=== PATIENT | female | born 2000 | race Caucasian/White ===

== ENCOUNTER 2022-09-25 12:40 | Inpatient (IN) | payer MEDICAID ==
--- NOTE | 2022-09-25 14:32 | P.HPOB ---
History of Present Illness H&P Date: 09/25/22 Chief Complaint: Requested induction of labor This patient is a pleasant 22 yr EDC 09/25/2022 estimated gestational age 40 0/7 weeks who presents for requested induction of labor. was complicated by an EIF however referral to [facility] showed it did not persist. Pre gnancy has otherwise been uncomplicated. Review of Systems Genitourinary: Reports Menstruation: Reports amenorrhea Past Medical History Past Medical History: No Reported History History of Any Multi-Drug Resistant Organisms: None Reported Past Surgical History: No Surgical Hx Reported Past Anesthesia/Blood Transfusion Reactions: No Reported Reaction Past Psychological History: No Psychological Hx Reported Smoking Status: Never smoker Past Alcohol Use History: None Reported Past Drug Use History: None Reported Medications and Allergies Home Medications Medication Instructions Recorded Confirmed Type Control 1 each PO DAILY 04/23/15 04/23/15 History Allergies Allergy/AdvReac Type Severity Reaction Status Date / Time cefazolin [From Kefzol] Allergy Unknown Verified 08/30/22 12:59 cefprozil [From Cefzil] Allergy Rash/Hives Verified 08/30/22 12:59 Penicillins Allergy Unknown Verified 08/30/22 12:59 Exam - OBG Physical Exam Abdomen: bowel sounds normal, no diffuse tenderness, no bruit present, no guarding noted, no hepatomegaly, no splenomegaly, no mass Vulva: both: normal Vagina: normal moisture, no discharge Cervix: no lesion (Cervix closed and thick in office), no discharge Uterus: enlarged Results labs: O positive, Rubella Immune, [id number] neg, Glucola 141 with normal 3hr GTTk, GBS negative, Normal anatomy and growth ultrasounds. Assessment and Plan Assessment: This is a pleasant 22 yr female estimated gestational age 40 wks with unfavorable cervix, requesting induction of labor. Plan is Cervidil placement and anticipate vaginal delivery. (1) 40 weeks gestation of Status: Acute Code(s): Z3A.40 - 40 WEEKS GESTATION OF SNOMED C ode(s): 19061883 (2) Elective induction of labor planned Status: Acute Code(s): FZM3306 - SNOMED Code(s): 667807655
[2022-09-25] MEDS ORDERED: BUTORPHANOL 1 MG/ML 1 ML VIAL IV PRN (17:09)
[2022-09-25] MEDS ORDERED: DINOPROSTONE 10 MG INSERT.ER VAGINAL ONE (17:15)
[2022-09-26] MEDS ORDERED: TERBUTALINE 1 MG/ML VIAL SQ PRN (04:40)
[2022-09-26] MEDS ORDERED: LIDOCAINE 0.5% (PF) 5 MG/ML (50 ML SDV) SQ PRN (04:40)
[2022-09-26] MEDS ORDERED: OXYTOCIN 30 UNITS/500 ML NS 30 UNIT in SALINE 1 500ML.BAG IV SCH ×2 (04:45→18:45)
[2022-09-26] MEDS: LACTATED RINGERS 1,000 ML IV SCH ×3 (05:27→13:48)
[2022-09-26 05:34] LABS: Basophils % (A) 0 %; Eosinophils # (A) 0.2 k/uL (0-0.7); Eosinophils % (A) 1 %; HCT 33.9 % (34.0-46.0); HGB 11.6 gm/dL (11.4-16.0); Lymphocytes # (A) 1.7 k/uL (1.0-4.8); Lymphocytes % (A) 16 %; MCH 26.5 pg (25.0-35.0); MCV 77.8 fL (80.0-100.0); Mean Platelet Volume 9.3; Monocytes # (A) 0.5 k/uL (0-1.0); Monocytes % (A) 5 %; Neutrophils % (A) 75 %; Platelet Count 223 k/uL (150-450); RBC 4.36 m/uL (3.80-5.40); WBC 10.7 k/uL (3.8-10.6)
[2022-09-26] MEDS ORDERED: fentaNYL (PF) 50 MCG/ML 5 ML AMP ONE (11:02)
[2022-09-26] MEDS ORDERED: BUPIVACAINE (PF) 0.25% 30 ML VIAL ONE (11:02)
[2022-09-26] MEDS ORDERED: SODIUM CHLORIDE 0.9% 100 ML BAG ONE (11:02)
[2022-09-26] MEDS ORDERED: CITRIC ACID-SODIUM CITRATE 15 ML CUP PO ONE (17:27)
[2022-09-26] MEDS ORDERED: CLINDAMYCIN 900 MG in DEXTROSE 5% IN WATER 50 ML IVPB STA ×2 (17:30)
[2022-09-26] MEDS ORDERED: ONDANSETRON 4 MG/2 ML VIAL ONE (17:47)
[2022-09-26] MEDS ORDERED: MORPHINE SULFATE (PF) 0.3 MG/0.3 ML SYR ONE (17:47)
[2022-09-26] MEDS ORDERED: MIDAZOLAM 2 MG/2 ML VIAL ONE (17:47)
[2022-09-26] MEDS ORDERED: KETOROLAC 15 MG/ML 1 ML VIAL ONE (17:47)
[2022-09-26] MEDS ORDERED: METHYLERGONOVINE 0.2 MG/ML 1 ML AMP ONE (17:47)
[2022-09-26] MEDS ORDERED: LANOLIN CREAM 5 GM TUBE TOPICAL PRN (18:39)
[2022-09-26] MEDS ORDERED: diphenhydrAMINE 25 MG CAP PO PRN (18:39)
[2022-09-26] MEDS ORDERED: ONDANSETRON 4 MG/2 ML VIAL IVP PRN (18:39)
[2022-09-26] MEDS ORDERED: NALOXONE 0.4 MG/ML 1 ML VIAL IV PRN (18:39)
[2022-09-26] MEDS ORDERED: SIMETHICONE 80 MG CHEWABLE PO PRN (18:39)
[2022-09-26] MEDS ORDERED: METOCLOPRAMIDE 5 MG/ML 2 ML VIAL IVP PRN (18:39)
[2022-09-26] MEDS ORDERED: diphenhydrAMINE 50 MG/ML 1 ML VIAL IVP PRN (18:39)
[2022-09-26] MEDS ORDERED: ZOLPIDEM 5 MG TAB PO PRN (18:39)
[2022-09-26] MEDS ORDERED: LACTATED RINGERS 1,000 ML IV SCH (18:45)
[2022-09-26] MEDS: ACETAMINOPHEN TAB 500 MG TAB PO SCH (19:33)
--- NOTE | 2022-09-26 20:18 | P.OP ---
Date of Procedure: 09/26/22 Preoperative Diagnosis: #1: 40 and one sevenths week intrauterine . #2: Nonreassuring heart tones remote from delivery Postoperative Diagnosis: Same Procedure(s) Performed: Primary low transverse section Anesthesia: epidural Surgeon: Gonzalo Evans Boarding Mother #1: Kelly Lawrence Estimated Blood Loss (ml): 1,000 Pathology: none sent Condition: stable Disposition: floor Indications for Procedure: Please see dictated H&P for intimate details of this patient's admission. Brief summary this is a 22-year-old 1 para 0 female 40 and one sevenths weeks gestation admitted last evening for Cervidil due to postdates with unfavorable cervix. Patient has Cervidil placed moist 2 cm dilated has artificial rupture membranes for clear fluid. Labor progresses slowly she gets to about 4 cm dilated and does have a spontaneous deceleration to the 70s and 80s for approximately 7 minutes or so. With position changes and discontinuing the Pitocin in the usual resuscitative measures heart tones returned to normal. After we have a reactive category 1 NST, the Pitocin was restarted. Patient progresses to about 6 cm dilated and then has repetitive late decelerations. Again Pitocin was discontinued in the usual resuscitative krishna ures are done. This time it is evident that the patient is remote from delivery and that the baby is not tolerating labor. This point have a discussion with the patient and her partner and the rest of the family decision is to proceed with section for delivery. Patient does understand the surgery and risks and risks of infection, bleeding, possible injury bowel, bladder, vessels, and/or other organs. All the patient's questions are answered and written consent is obtained. Operative Findings: This is a vigorous viable male infant Apgars 9 and 9 delivery time is 1805 hrs. Infant grossly appeared normal. Description of Procedure: This patient has a Villasenor catheter placed to straight drain. She subsequently taken to the operating room and she has her epidural dosed up for sufficient level of surgery. After the appropriate timeout, she has abdominal prep and drape. Scalpels and taken Pfannenstiel skin incision is then made. A second scalpel is taken down the fascia the fascia scored with a knife. Fascial incision extended bilaterally using the Berumen scissors. Fascia is dissected off the rectus muscles sharply. Rectus muscles are the peritoneum identified and entered sharply. Peritoneal incision extended superior and inferior without difficulty. Bladder blade is then placed. Bladder peritoneum was taken sharply off the lower uterine segment. Scalpels and taken a low transverse uterine incision is then made. Using a hemostat I enter the uterine cavity bluntly. There is loss of clear fluid. Uterine incision extended bluntly. 's head is then found to be occiput transverse presentation and is gently guided through the incision with fundal pressure. Mouth and nares are bulb suctioned. There is no evidence of a nuchal cord. With more fundal pressure we have delivery the rest this infant's body. This is a vigorous viable male Apgars are 9 and 9 delivery time is 1805 hrs. After delivery of the the umbilical cord is doubly clamped and cut. It appears to be trivascular. The placenta is then manually extracted intact. Uterus is externalized. Uterine incision is demarcated with Vanegas clamps and then closed using 0 Vicryl running locked fashion 2 layers. Excellent hemostasis is noted. Bladder peritoneum was then reapproximated using a 3-0 Vicryl. Uterus, tubes, ovaries appear normal for term gestation. With this done excess fluid is removed from the abdomen and pelvis. Uterus is placed back into the abdomen. The parietal peritoneum was then identified and closed using 0 Vicryl running fashion. Rectus muscles reapproximated in 0 Vicryl interrupted fashion. Fascial incision is then closed using 0 PDS. Fascial incision is intact and hemostatic. Subcutaneous tissues and closed using a 3-0 Vicryl. Skin is and closed using gumaro. All counts are correct 3. There are no complications. Infant and mother are taken to the birthing suite in satisfactory condition.
[2022-09-26] MEDS: METHYLERGONOVINE 0.2 MG TAB PO SCH (22:20)
[2022-09-26] MEDS: SENNOSIDES-DOCUSATE SODIUM 1 EACH TAB PO SCH (22:20)
[2022-09-26] MEDS: KETOROLAC 15 MG/ML 1 ML VIAL IVP SCH (23:35)
[2022-09-26] MEDS: CLINDAMYCIN 900 MG in DEXTROSE 5% IN WATER 50 ML IVPB SCH ×2 (23:36)
[2022-09-27] MEDS: IBUPROFEN 600 MG TAB PO SCH ×4 (01:19→20:51)
[2022-09-27] MEDS: KETOROLAC 15 MG/ML 1 ML VIAL IVP SCH (05:04)
[2022-09-27] MEDS: CLINDAMYCIN 900 MG in DEXTROSE 5% IN WATER 50 ML IVPB SCH ×2 (05:10)
--- NOTE | 2022-09-27 06:35 | P.PNOBGPC ---
Subjective - Subjective Patient reports: Reports appetite normal, Reports voiding normally, Reports pain well controlled, Reports ambulating normally : doing well Objective - Vital Signs Latest vital signs: Vital Signs Temp Pulse Resp BP Pulse Ox 09/27/22 05:15 98.4 F 84 16 109/71 96 09/27/22 00:11 98.1 F 86 16 112/76 97 09/26/22 20:36 73 16 117/75 97 09/26/22 20:06 75 16 116/74 97 09/26/22 19:36 82 16 123/75 97 09/26/22 19:21 78 16 119/66 96 09/26/22 19:06 74 16 117/63 95 09/26/22 18:51 84 16 125/60 96 09/26/22 18:39 99 09/26/22 18:36 97.5 F L 87 16 119/56 96 Intake and Output 09/26/22 09/26/22 09/27/22 14:59 22:59 06:59 Intake Total 1000 500 Output Total 1280 1050 Balance -280 -550 Intake: IV 1000 Oral 500 Output: Urine 100 1050 Straight 600 Uretheral (Villasenor) 450 Output, Quantitative 1180 Blood Loss - Exam Lungs: bilateral: normal Chest: Normal S1, Normal S2 Extremities: Present: normal Abdomen: Present: normal appearance, soft. Absent: distention, tenderness Incision: Present: normal, dry, intact Uterus: Present: normal, firm Assessment and Plan Assessment: Postoperative day #1. Patient is resting without complaints. Vital signs are stable and she is afebrile. Uterus is firm nontender and she is having normal lochia. CBC is pending at time of this dictation. Incision is intact and dry. Patient did have the cath removed and she has required 1 straight catheterization. Plan today is to advance patient's diet, check CBC, encourage ambulation, and allow the patient to shower. (1) 40 weeks gestation of Current Visit: No Status: Acute Code(s): Z3A.40 - 40 WEEKS GESTATION OF SNOMED Code(s): 79584679 (2) Elective induction of labor planned Current Visit: No Status: Acute Code(s): JWP4622 - SNOMED Code(s): 461999635
--- NOTE | 2022-09-27 07:30 | P.PN ---
Progress Note - Text Progress Note Date: 09/27/22 Postop day 1 from under spinal anesthesia with epidurall morphine given for postop pain management. Patient is doing well. Pain is well controlled. On visual analog scale 3/10 Mild itching present No nausea or vomiting reported. No Headache or weakness and numbness in the legs. No complications from spinal anesthesia.
[2022-09-27 08:34] LABS: Basophils % (A) 0 %; Eosinophils # (A) 0.1 k/uL (0-0.7); Eosinophils % (A) 0 %; HCT 32.2 % (34.0-46.0); HGB 10.8 gm/dL (11.4-16.0); Hypochromasia Slight; Lymphocytes # (A) 1.2 k/uL (1.0-4.8); Lymphocytes % (A) 9 %; MCH 26.4 pg (25.0-35.0); MCHC 33.5 g/dL (31.0-37.0); MCV 78.8 fL (80.0-100.0); Mean Platelet Volume 9.3; Monocytes # (A) 0.6 k/uL (0-1.0); Monocytes % (A) 4 %; Neutrophils # (A) 11.9 k/uL (1.3-7.7); Neutrophils % (A) 86 %; Platelet Count 210 k/uL (150-450); RBC 4.09 m/uL (3.80-5.40); RDW 14.1 % (11.5-15.5); WBC 13.9 k/uL (3.8-10.6)
[2022-09-27] MEDS: ACETAMINOPHEN TAB 500 MG TAB PO SCH ×4 (09:28→23:41)
[2022-09-27] MEDS: SENNOSIDES-DOCUSATE SODIUM 1 EACH TAB PO SCH ×2 (09:28→20:52)
[2022-09-27] MEDS: METHYLERGONOVINE 0.2 MG TAB PO SCH ×2 (09:29→18:04)
[2022-09-28 00:10] VITALS: TEMP 98.2
[2022-09-28] MEDS: IBUPROFEN 600 MG TAB PO SCH ×2 (03:26→09:25)
[2022-09-28] MEDS: ACETAMINOPHEN TAB 500 MG TAB PO SCH ×2 (05:16→13:48)
--- NOTE | 2022-09-28 05:50 | P.PNOBGPC ---
Subjective - Subjective Patient reports: Reports appetite normal, Reports voiding normally, Reports pain well controlled, Reports ambulating normally : doing well Objective - Vital Signs Latest vital signs: Vital Signs Temp Pulse Resp BP Pulse Ox 09/28/22 00:00 98.2 F 78 17 102/62 99 09/27/22 16:00 98.3 F 97 16 106/68 100 09/27/22 12:00 97.9 F 99 16 113/70 96 09/27/22 08:00 98.2 F 89 16 113/75 96 Intake and Output 09/27/22 09/27/22 09/28/22 14:59 22:59 06:59 Output Total 575 500 Balance -575 -500 Output: Urine 575 500 Other: # Voids 1 - Exam Lungs: bilateral: normal Chest: Normal S1, Normal S2 Extremities: Present: normal Abdomen: Present: normal appearance, soft. Absent: distention, tenderness Incision: Present: normal, dry, intact Uterus: Present: normal, firm - Labs Labs: Abnormal Lab Results - Last 24 Hours (Table) 09/27/22 Range/Units 08:09 WBC 13.9 H (3.8-10.6) k/uL Hgb 10.8 L (11.4-16.0) gm/dL Hct 32.2 L (34.0-46.0) % MCV 78.8 L (80.0-100.0) fL Neutrophils # 11.9 H (1.3-7.7) k/uL Assessment and Plan Assessment: Postoperative day #2. Patient is resting without complaints wishes to go home. Vital signs are stable she is afebrile. Uterus is firm nontender and her incision is intact and dry. CBC from yesterday was normal. Patient's ambulating, urinating, and tolerating regular diet. Plan today is continue routine care discharge home later this morning (1) 40 weeks gestation of Current Visit: No Status: Acute Code(s): Z3A.40 - 40 WEEKS GESTATION OF SNOMED Code(s): 47581248 (2) Elective induction of labor planned Current Visit: No Status: Acute Code(s): ZLP6856 - SNOMED Code(s): 013829283
--- NOTE | 2022-09-28 05:57 | P.DS ---
Providers Date of admission: 09/25/22 17:00 Expected date of discharge: 09/28/22 Attending physician: Gonzalo Evans Primary care physician: Stated None - Discharge Diagnosis(es) (1) 40 weeks gestation of Current Visit: No Status: Acute (2) Elective induction of labor planned Current Visit: No Status: Acute Hospital Course: Please dictated H&P for intimate details of this patient's admission. Brief summary this pleasant 22-year-old 1 para 0 female 40 and one sevenths weeks gestation admitted to labor and delivery for postdates induction of labor. Patient subsequently goes on have a primary low transverse section for nonreassuring heart tones. Please see dictated operative note. Postoperative patient does well and on postoperative 2 felt to be stable for discharge home to follow up with me in 1 week. Procedures: Two-stage induction of labor and primary low transverse section Plan - Discharge Summary New Discharge Prescriptions: New Ibuprofen [Motrin] 600 mg PO Q6H #40 tab oxyCODONE HCL [OxyIR] 5 mg PO Q4HR PRN #18 tab PRN Reason: Pain Scale 4 - 6 No Action Loratadine [Claritin] 10 mg PO DAILY Fluticasone Nasal [place] [Flonase Nasal Felton] 1 spray EA NOSTRIL DAILY Discharge Medication List Fluticasone Nasal [place] [Flonase Nasal [place]] 1 spray EA NOSTRIL DAILY 09/25/22 [History] Loratadine [Claritin] 10 mg PO DAILY 09/25/22 [History] Ibuprofen [Motrin] 600 mg PO Q6H #40 tab 09/28/22 [Rx] oxyCODONE HCL [OxyIR] 5 mg PO Q4HR PRN #18 tab 09/28/22 [Rx] Follow up Appointment(s)/Referral(s): Gonzalo Evans MD [STAFF PHYSICIAN] - 11/07/22 9:15 am (Post Op Appointment 10-05-2022 at 1:30) Patient Instructions/Handouts: (DC) Activity/Diet/Wound Care/Special Instructions: No strenuous activity or heavy lifting for 6 weeks. No intercourse or anything per vagina for 6 weeks. Please call if any fever, chills, excessive vaginal bleeding, and/or abdominal pain. Discharge Disposition: HOME SELF-CARE
[2022-09-28 08:01] VITALS: BP 115/67; PULSE 88; RESP 16
[2022-09-28] MEDS: SENNOSIDES-DOCUSATE SODIUM 1 EACH TAB PO SCH (09:25)
[2022-09-28] MEDS: KETOROLAC 15 MG/ML 1 ML VIAL IVP SCH ×2 (11:03→13:48)
== END 2022-09-28 12:15 | disposition home or self-care (01) | DRG 788 ==
LOC: MERGE 12:40 → 4FBP 17:00
PROVIDERS: ADMIT Obstetrics & Gynecology; ATTEND Obstetrics & Gynecology
PROC: 10D00Z1 Extraction of Products of Conception, Low, Open Approach (ICD-10-PCS; principal; 2022-09-25)
PROC: 4A0HXCZ Measurement of Products of Conception, Cardiac Rate, External Approach (ICD-10-PCS; 2022-09-25)
PROC: 3E0P7VZ Introduction of Hormone into Female Reproductive, Via Natural or Artificial Opening (ICD-10-PCS; 2022-09-25)
PROC: 3E033VJ Introduction of Other Hormone into Peripheral Vein, Percutaneous Approach (ICD-10-PCS; 2022-09-25)
PROC: 10907ZC Drainage of Amniotic Fluid, Therapeutic from Products of Conception, Via Natural or Artificial Opening (ICD-10-PCS; 2022-09-25)
DX: O76 Abnormality in fetal heart rate and rhythm complicating labor and delivery (principal); O61.0 Failed medical induction of labor; O34.43 Maternal care for other abnormalities of cervix, third trimester; O48.0 Post-term pregnancy; Z37.0 Single live birth; Z3A.40 40 weeks gestation of pregnancy; Z88.1 Allergy status to other antibiotic agents; Z88.8 Allergy status to other drugs, medicaments and biological substances
CPT/HCPCS: 85025; 86850; 86900; 86901

== ENCOUNTER 2022-09-29 08:11 | Observation (INO) | payer MEDICAID ==
[2022-09-29] MEDS ORDERED: SODIUM CHLORIDE 0.9% 1,000 ML IV STA (08:34)
[2022-09-29] MEDS ORDERED: IBUPROFEN 600 MG TAB PO STA (08:35)
--- NOTE | 2022-09-29 08:40 | ED ---
General Adult HPI - General Chief complaint: Recheck/Abnormal Lab/Rx Stated complaint: fever - post op Time Seen by Provider: 09/29/22 08:22 Source: patient, RN notes reviewed Mode of arrival: ambulatory Limitations: no limitations - History of Present Illness Initial comments: 22-year-old female presents emergency Department with chief complaint of fever. Patient was sent in by her HAIR DRYER. Patient had emergency by Dr. Evans on 09/26/2022. Patient was discharged from the hospital yesterday the fever started last night. Patient did present to the office and was sent over here for further evaluation. She denies any dysuria, cough, runny nose, sore throat, dysuria. She has mild left flank pain she does complain of mid back pain from her spinal but states this is not any more painful than it was. She has no increasing abdominal pain. She has been wearing the abdominal binder. Patient states that she took one extra strength Tylenol 15 minutes prior arrival. She has not taken any ibuprofen. She was prescribed oxycodone. De nies any sick contacts at home. Denies breast-feeding. - Related Data Home Medications Medication Instructions Recorded Confirmed Fluticasone Nasal Graham [Flonase 1 spray EA NOSTRIL DAILY 09/25/22 09/29/22 Nasal Graham] Loratadine [Claritin] 10 mg PO DAILY 09/25/22 09/29/22 Previous Rx's Medication Instructions Recorded Ibuprofen [Motrin] 600 mg PO Q6H #40 tab 09/28/22 oxyCODONE HCL [OxyIR] 5 mg PO Q4HR PRN #18 tab 09/28/22 Allergies Allergy/AdvReac Type Severity Reaction Status Date / Time cefprozil [From Cefzil] Allergy Rash/Hives Verified 09/29/22 10:59 Penicillins Allergy Swelling Verified 09/29/22 10:59 Review of Systems ROS Statement: Those systems with pertinent positive or pertinent negative responses have been documented in the HPI. ROS Other: All systems not noted in ROS Statement are negative. Past Medical History Past Medical History: No Reported History History of Any Multi-Drug Resistant Organisms: None Reported Past Surgical History: Section Additional Past Surgical History / Comment(s): gum surgery Past Anesthesia/Blood Transfusion Reactions: No Reported Reaction Past Psychological History: No Psychological Hx Reported Smoking Status: Never smoker Past Alcohol Use History: None Reported Past Drug Use History: None Reported General Exam Limitations: no limitations General appearance: alert, in no apparent distress Head exam: Present: atraumatic, normocephalic, normal inspection Eye exam: Present: normal appearance, PERRL, EOMI. Absent: scleral icterus, conjunctival injection, periorbital swelling ENT exam: Present: normal exam, normal oropharynx, mucous membranes moist Neck exam: Present: normal inspection, full ROM. Absent: tenderness, meningismus, lymphadenopathy Respiratory exam: Present: normal lung sounds bilaterally. Absent: respiratory distress, wheezes, rales, rhonchi, stridor Cardiovascular Exam: Present: normal rhythm, tachycardia, normal heart sounds. Absent: systolic murmur, diastolic murmur, rubs, gallop, clicks GI/Abdominal exam: Present: soft, tenderness (Over incisional site), normal bowel sounds. Absent: distended, guarding, rebound, rigid Extremities exam: Present: normal inspection Back exam: Present: CVA tenderness (L). Absent: CVA tenderness (R) Neurological exam: Present: alert, oriented X3 Skin exam: Present: warm, dry, intact, normal color. Absent: rash Course Vital Signs 09/29/22 09/29/22 09/29/22 08:13 09:08 11:30 Temperature 101.6 F H 98.2 F 97.9 F Pulse Rate 119 H Respiratory 22 Rate Blood Pressure 111/73 O2 Sat by Pulse 97 Oximetry Medical Decision Making - Medical Decision Making Was pt. sent in by a medical professional or institution (, PA, [employer], urgent care, hospital, or longterm...) When possible be specific @ -HAIR DRYER Did you speak to anyone other than the patient for history (EMS, parent, family, police, friend...)? What history was obtained from this source @ -family Did you review nursing and triage notes (agree or disagree)? Why? @ -[I reviewed and agree with nursing and triage notes] Were old charts reviewed (outside hosp., previous admission, EMS record, old EKG, old radiological studies, urgent care reports/EKG's, longterm records)? Report findings @ -Recent hospitalization and notes Differential Diagnosis (chest pain, altered mental status, abdominal pain women, abdominal pain men, vaginal bleeding, weakness, fever, dyspnea, syncope, headache, dizziness, GI bleed, back pain, seizure, CVA, palpatations, mental health)? @ -[Intra-abdominal abscess, postoperative infection, sepsis, influenza, COVID- 19, UTI this list is not all inclusive EKG interpreted by me (3pts min.). @ -[As above] X-rays interpreted by me (1pt min.). @ -[None done] CT interpreted by me (1pt min.). @ -CT abdomen pelvis shows no acute abdominal process U/S interpreted by me (1pt. min.). @ -[None done] What testing was considered but not performed or refused? (CT, X-rays, U/S, labs)? Why? @ -[None] What meds were considered but not given or refused? Why? @ -[None] Did you discuss the management of the patient with other professionals (candace talbot i.e. , PA, [employer], lab, RT, psych nurse, criminal justice social worker, air carrier maintenance inspector, teacher, [place] customs and border officer, business case analyst)? Give summary @ -Dr. Evans HAIR DRYER Was smoking cessation discussed for >3mins.? @ -[No] Was critical care preformed (if so, how long)? @ -[No] Were there social determinants of health that impacted care today? How? (Homelessness, low income, unemployed, alcoholism, drug addiction, transportation, low edu. Level, literacy, decrease access to med. care, half-way, rehab)? @ -[No] Was there de-escalation of care discussed even if they declined (Discuss DNR or withdrawal of care, Hospice)? DNR status @ -[No] What co-morbidities impacted this encounter? (DM, HTN, Smoking, COPD, CAD, Cancer, CVA, ARF, Chemo, Hep., AIDS, mental health diagnosis, sleep apnea, morbid obesity)? @ -[None] Was patient admitted / discharged? Hospital course, mention meds given and route , prescriptions, significant lab abnormalities, going to OR and other pertinent info. @ -Admitted Undiagnosed new problem with uncertain prognosis? @ -[No] Drug Therapy requiring intensive monitoring for toxicity (Heparin, Nitro, Insulin, Cardizem)? @ -[No] Were any procedures done? @ -[No] Diagnosis/symptom? @ -Status post Acute, or Chronic, or Acute on Chronic? @ -acute Uncomplicated (without systemic symptoms) or Complicated (systemic symptoms)? @ -Complicated Side effects of treatment? @ -[No] Exacerbation, Progression, or Severe Exacerbation? @ -[No] Poses a threat to life or bodily function? How? (Chest pain, [place], [place], pneumonia, PE, COPD, DKA, ARF, appy, cholecystitis, CVA, Diverticulitis, Homicidal, Suicidal, threat to staff... and all critical care pts) @ -[No] Diagnosis/symptom? @ -fever Acute, or Chronic, or Acute on Chronic? @ -acute Uncomplicated (without systemic symptoms) or Complicated (systemic symptoms)? @ -uncomplicated Side effects of treatment? @ -[none] Exacerbation, Progression, or Severe Exacerbation] @ -[no] Poses a threat to life or bodily function? @ -[no] I discussed case with Dr. Evans recommends patient be admitted on clindamycin, gentamicin. Patient be admitted to labor and delivery. - Lab Data Result diagrams: 09/29/22 09:00 09/29/22 09:00 Lab Results 09/29/22 09/29/22 09/29/22 Range/Units 09:00 09:00 09:00 WBC 8.3 (3.8-10.6) k/uL RBC 3.60 L (3.80-5.40) m/uL Hgb 9.4 L (11.4-16.0) gm/dL Hct 28.0 L (34.0-46.0) % MCV 77.6 L (80.0-100.0) fL MCH 26.2 (25.0-35.0) pg MCHC 33.7 (31.0-37.0) g/dL RDW 14.2 (11.5-15.5) % Plt Count 235 (150-450) k/uL MPV 8.6 Neutrophils % 84 % Lymphocytes % 9 % Monocytes % 4 % Eosinophils % 1 % Basophils % 0 % Neutrophils # 6.9 (1.3-7.7) k/uL Lymphocytes # 0.8 L (1.0-4.8) k/uL Monocytes # 0.3 (0-1.0) k/uL Eosinophils # 0.1 (0-0.7) k/uL Basophils # 0.0 (0-0.2) k/uL PT 9.4 (9.0-12.0) sec INR 0.9 (<1.2) APTT 24.7 (22.0-30.0) sec Sodium 133 L (137-145) mmol/L Potassium 3.5 (3.5-5.1) mmol/L Chloride 107 (98-107) mmol/L Carbon Dioxide 22 (22-30) mmol/L Anion Gap 4 mmol/L BUN 6 L (7-17) mg/dL Creatinine 0.74 (0.52-1.04) mg/dL Est GFR (CKD-EPI)AfAm >90 (>60 ml/min/1.73 sqM) Est GFR (CKD-EPI)NonAf >90 (>60 ml/min/1.73 sqM) Glucose 85 (74-99) mg/dL Plasma Lactic Acid Steve (0.7-2.0) mmol/L Calcium 7.6 L (8.4-10.2) mg/dL Total Bilirubin 1.0 (0.2-1.3) mg/dL AST 28 (14-36) U/L ALT 16 (4-34) U/L Alkaline Phosphatase 136 H (38-126) U/L Total Protein 4.9 L (6.3-8.2) g/dL Albumin 2.6 L (3.5-5.0) g/dL Urine Color Urine Appearance (Clear) Urine pH (5.0-8.0) Ur Specific [place] (1.001-1.035) Urine Protein (Negative) Urine Glucose (UA) (Negative) Urine Ketones (Negative) Urine Blood (Negative) Urine Nitrite (Negative) Urine Bilirubin (Negative) Urine Urobilinogen (<2.0) mg/dL Ur Leukocyte Esterase (Negative) Urine RBC (0-5) /hpf Urine WBC (0-5) /hpf Ur Squamous Epith Cells (0-4) /hpf Amorphous Sediment (None) /hpf Urine Mucus (None) /hpf Influenza Type A (PCR) (Not Detectd) Influenza Type B (PCR) (Not Detectd) RSV (PCR) (Not Detectd) SARS-CoV-2 (PCR) (Not Detectd) 09/29/22 09/29/22 09/29/22 Range/Units 09:00 09:00 10:05 WBC (3.8-10.6) k/uL RBC (3.80-5.40) m/uL Hgb (11.4-16.0) gm/dL Hct (34.0-46.0) % MCV (80.0-100.0) fL MCH (25.0-35.0) pg MCHC (31.0-37.0) g/dL RDW (11.5-15.5) % Plt Count (150-450) k/uL MPV Neutrophils % % Lymphocytes % % Monocytes % % Eosinophils % % Basophils % % Neutrophils # (1.3-7.7) k/uL Lymphocytes # (1.0-4.8) k/uL Monocytes # (0-1.0) k/uL Eosinophils # (0-0.7) k/uL Basophils # (0-0.2) k/uL PT (9.0-12.0) sec INR (<1.2) APTT (22.0-30.0) sec Sodium (137-145) mmol/L Potassium (3.5-5.1) mmol/L Chloride (98-107) mmol/L Carbon Dioxide (22-30) mmol/L Anion Gap mmol/L BUN (7-17) mg/dL Creatinine (0.52-1.04) mg/dL Est GFR (CKD-EPI)AfAm (>60 ml/min/1.73 sqM) Est GFR (CKD-EPI)NonAf (>60 ml/min/1.73 sqM) Glucose (74-99) mg/dL Plasma Lactic Acid Steve 0.8 (0.7-2.0) mmol/L Calcium (8.4-10.2) mg/dL Total Bilirubin (0.2-1.3) mg/dL AST (14-36) U/L ALT (4-34) U/L Alkaline Phosphatase (38-126) U/L Total Protein (6.3-8.2) g/dL Albumin (3.5-5.0) g/dL Urine Color Yellow Urine Appearance Clear (Clear) Urine pH 6.5 (5.0-8.0) Ur Specific [place] 1.007 (1.001-1.035) Urine Protein Trace H (Negative) Urine Glucose (UA) Negative (Negative) Urine Ketones Negative (Negative) Urine Blood Large H (Negative) Urine Nitrite Negative (Negative) Urine Bilirubin Negative (Negative) Urine Urobilinogen <2.0 (<2.0) mg/dL Ur Leukocyte Esterase Large H (Negative) Urine RBC 62 H (0-5) /hpf Urine WBC 53 H (0-5) /hpf Ur Squamous Epith Cells 2 (0-4) /hpf Amorphous Sediment Rare H (None) /hpf Urine Mucus Rare H (None) /hpf Influenza Type A (PCR) Not Detected (Not Detectd) Influenza Type B (PCR) Not Detected (Not Detectd) RSV (PCR) Not Detected (Not Detectd) SARS-CoV-2 (PCR) Not Detected (Not Detectd) Disposition Clinical Impression: Fever, Status post Disposition: ADMITTED IP TO THIS HOSP Condition: Fair Referrals: None,Stated [Primary Care Provider] - 1-2 days Time of Disposition: 11:23
[2022-09-29 09:16] LABS: Basophils % (A) 0 %; Eosinophils # (A) 0.1 k/uL (0-0.7); Eosinophils % (A) 1 %; HGB 9.4 gm/dL (11.4-16.0); Lymphocytes # (A) 0.8 k/uL (1.0-4.8); Lymphocytes % (A) 9 %; MCH 26.2 pg (25.0-35.0); MCHC 33.7 g/dL (31.0-37.0); MCV 77.6 fL (80.0-100.0); Mean Platelet Volume 8.6; Monocytes # (A) 0.3 k/uL (0-1.0); Monocytes % (A) 4 %; Neutrophils # (A) 6.9 k/uL (1.3-7.7); Neutrophils % (A) 84 %; Platelet Count 235 k/uL (150-450); RDW 14.2 % (11.5-15.5); WBC 8.3 k/uL (3.8-10.6)
[2022-09-29 09:25] LABS: INR 0.9 (<1.2); Partial Thromboplastin Time 24.7 sec (22.0-30.0); Prothrombin Time 9.4 sec (9.0-12.0)
--- NOTE | 2022-09-29 09:36 | XR ---
EXAMINATION TYPE: XR chest 2V DATE OF EXAM: 09/29/2022 9:30 AM COMPARISON: Chest radiographs from 04/23/2015 TECHNIQUE: XR chest 2V Frontal and lateral views of the chest. CLINICAL INDICATION:Female, 22 years old with history of fever; FINDINGS: Lungs/Pleura: There is no evidence of pleural effusion, focal consolidation, or pneumothorax. Pulmonary vascularity: Unremarkable. Heart/mediastinum: Cardiomediastinal silhouette is unremarkable. Musculoskeletal: No acute osseous pathology. IMPRESSION: No acute cardiopulmonary disease/process.
[2022-09-29 09:55] LABS: ALT 16 U/L (4-34); AST 28 U/L (14-36); African American GFR (CKD) >90 (>60 ml/min/1.73 sqM); Albumin 2.6 g/dL (3.5-5.0); Alkaline Phosphatase 136 U/L (38-126); Anion Gap 4 mmol/L; Blood Urea Nitrogen 6 mg/dL (7-17); Calcium 7.6 mg/dL (8.4-10.2); Carbon Dioxide 22 mmol/L (22-30); Chloride 107 mmol/L (98-107); Glucose 85 mg/dL (74-99); Non-African American GFR(CKD) >90 (>60 ml/min/1.73 sqM); Potassium 3.5 mmol/L (3.5-5.1); Sodium 133 mmol/L (137-145); Total Protein 4.9 g/dL (6.3-8.2)
[2022-09-29 10:39] LABS: Amorphous Sediment,Urine Rare /hpf; Appearance,Urine Clear (Clear); Bilirubin,Urine Negative (Negative); Blood,Urine Large (Negative); Color,Urine Yellow; Glucose,Urine (UA) Negative (Negative); Ketones,Urine Negative (Negative); Leukocyte Esterase,Urine Large (Negative); Mucus,Urine Rare /hpf; Nitrite,Urine Negative (Negative); PH, Urine 6.5 (5.0-8.0); Protein,Urine Trace (Negative); RBC,Urine 62 /hpf (0-5); Specific Gravity,Urine 1.007 (1.001-1.035); Squamous Epithelial Cell,Urine 2 /hpf (0-4); Urobilinogen,Urine <2.0 mg/dL (<2.0); WBC,Urine 53 /hpf (0-5)
--- NOTE | 2022-09-29 11:02 | CT ---
EXAMINATION TYPE: CT abdomen pelvis w con DATE OF EXAM: 09/29/2022 COMPARISON: None INDICATION: Post Sunday, c/o pain, fever DLP: 1074.6 mGycm, Automated exposure control for dose reduction was used. CONTRAST: 100 mL of Isovue 300. Study performed without Oral Contrast TECHNIQUE: Axial images were obtained from above the diaphragm to the pubic rami in the axial plane a t 5 mm thick sections. Reconstructed images are reviewed on the computer in the coronal plane. FINDINGS: Limited CT sections are obtained the lung bases. The lung bases are clear. CT ABDOMEN: Liver: Normal Spleen: Normal Pancreas: Normal Adrenal glands: The adrenal glands are normal. Gallbladder: Normal Kidneys: No masses are evident. No hydronephrosis is present. No cysts are present. Delayed images were obtained through the kidneys, which remain unremarkable. Aorta: Normal Inferior vena cava: Normal. CT PELVIS: Loops of bowel within the abdomen and pelvis are normal. This study is performed without oral con trast limiting bowel evaluation. Appendix: Not identified. No dilated tubular structure or inflammatory changes are evident. Urinary bladder: Normal. Genitourinary structures: Uterus is prominent. A tiny amount of air is within the cervical canal and within the fundus. Endometrial canal is indistinct. No discrete retained products of conception are i dentified. Note is also made of subcutaneous air and small amount of air within the anterior abdomina l wall compatible with recent surgical . No intra-abdominal free air is identified. No absce ss formation is identified. Osseous structures: No suspicious lytic or sclerotic lesions. IMPRESSIONS: 1. Post surgical changes within the anterior abdomen and uterus. 2. No suspicious changes for fever of unknown origin.
[2022-09-29] MEDS ORDERED: ONDANSETRON 4 MG/2 ML VIAL IVP PRN (11:44)
[2022-09-29] MEDS ORDERED: NALOXONE 0.4 MG/ML 1 ML VIAL IV PRN (11:44)
[2022-09-29] MEDS ORDERED: IBUPROFEN 400 MG TAB PO PRN (11:44)
[2022-09-29] MEDS ORDERED: GENTAMICIN PER PHARMACY MISCELLANE SCH (11:45)
[2022-09-29] MEDS ORDERED: CLINDAMYCIN 600 MG in DEXTROSE 5% IN WATER 50 ML IVPB STA ×2 (11:46)
[2022-09-29] MEDS ORDERED: GENTAMICIN 300 MG in SODIUM CHLORIDE 0.9% 100 ML IVPB ONE (12:00)
[2022-09-29] MEDS: SODIUM CHLORIDE 0.9% 1,000 ML IV SCH (12:34)
[2022-09-29] MEDS ORDERED: IBUPROFEN 600 MG TAB PO PRN (14:37)
--- NOTE | 2022-09-29 17:24 | P.HPOB ---
History of Present Illness H&P Date: 09/29/22 Chief Complaint: Chills and fever status post This patient is a pleasant 22-year-old 1 para 1 female status post section on September 26 for failure to progress in labor. Patient was given a dose of clindamycin at the time of her in 2 doses postoperatively. Patient's CBC postoperatively was good and her postoperative course was uncomplicated. Patient went home yesterday and then apparently last evening began developing some chills and her mother checked her temperature was 102. Patient denies any abdominal pain other than the normal postoperative pain. She has no cough or other symptomatology. CBC in the ER here was normal with a white count of 8.3. CT imaging her abdomen was normal, consistent with postoperative changes. Patient is admitted for IV antibiotics and serial CBC and observation. Review of Systems Constitutional: Reports as per HPI, Reports chills Genitourinary: Reports as per HPI Past Medical History Past Medical History: No Reported History History of Any Multi-Drug Resistant Organisms: None Reported Past Surgical History: Section Additional Past Surgical History / Comment(s): gum surgery Past Anesthesia/Blood Transfusion Reactions: No Reported Reaction Past Psychological History: No Psychological Hx Reported Smoking Status: Never smoker Past Alcohol Use History: None Reported Additional Past Alcohol Use History / Comment(s): past vaper Past Drug Use History: None Reported - Past Family History Mother Family Medical History: Diabetes Mellitus, Hypertension Medications and Allergies Home Medications Medication Instructions Recorded Confirmed Type Fluticasone Nasal [place] [Flonase 1 spray EA NOSTRIL DAILY 09/25/22 09/29/[address] [place] [address]] Loratadine [Claritin] 10 mg PO DAILY 09/25/22 09/29/22 History Ibuprofen [Motrin] 600 mg PO Q6H #40 tab 09/28/22 09/29/22 Rx oxyCODONE HCL [OxyIR] 5 mg PO Q4HR PRN #18 tab 09/28/22 09/29/22 Rx Allergies Allergy/AdvReac Type Severity Reaction Status Date / Time cefprozil [From Cefzil] Allergy Rash/Hives Verified 09/29/22 10:59 Penicillins Allergy Swelling Verified 09/29/22 10:59 Exam Vital Signs Temp Pulse Pulse Resp BP BP Pulse Ox 09/29/22 16:00 98.5 F 96 16 94/62 99 01/06/23 13:00 97.7 F 91 16 107/73 97 09/29/22 12:38 97.5 F L 94 18 106/75 98 09/29/22 11:30 97.9 F 09/29/22 09:08 98.2 F 09/29/22 08:13 101.6 F H 119 H 22 111/73 97 Intake and Output 09/29/22 09/29/22 09/29/22 06:59 14:59 22:59 Other: Weight 72.575 kg - OBG Physical Exam Abdomen: bowel sounds normal Results Result Diagrams: 09/29/22 09:00 09/29/22 09:00 Abnormal Lab Results - Last 24 Hours (Table) 09/29/22 09/29/22 09/29/22 Range/Units 09:00 09:00 10:05 RBC 3.60 L (3.80-5.40) m/uL Hgb 9.4 L (11.4-16.0) gm/dL Hct 28.0 L (34.0-46.0) % MCV 77.6 L (80.0-100.0) fL Lymphocytes # 0.8 L (1.0-4.8) k/uL Sodium 133 L (137-145) mmol/L BUN 6 L (7-17) mg/dL Calcium 7.6 L (8.4-10.2) mg/dL Alkaline Phosphatase 136 H (38-126) U/L Total Protein 4.9 L (6.3-8.2) g/dL Albumin 2.6 L (3.5-5.0) g/dL Urine Protein Trace H (Negative) Urine Blood Large H (Negative) Ur Leukocyte Esterase Large H (Negative) Urine RBC 62 H (0-5) /hpf Urine WBC 53 H (0-5) /hpf Amorphous Sediment Rare H (None) /hpf Urine Mucus Rare H (None) /hpf Assessment and Plan Assessment: This is a pleasant 22-year-old 1 para 1 female postoperative day #3 from a section who is readmitted to this hospital with chills and fever. At this point there is no clinical evidence on exam of endometritis however we need to presume this is the source. Due to the patient's anaphylactic reaction to penicillin she was given just clindamycin at the time of her section. For this reason, I'm going to continue her on clindamycin and add gentamicin. Urine and blood cultures pending. We'll repeat CBC in the morning. Patient be treated with oral ibuprofen and Tylenol as needed. (1) Fever Current Visit: Yes Status: Acute Code(s): R50.9 - FEVER, UNSPECIFIED SNOMED Code(s): 107351057 (2) Status post Current Visit: Yes Status: Acute Code(s): Z98.891 - HISTORY OF UTERINE SCAR FROM PREVIOUS SURGERY SNOMED Code(s): 958260287
[2022-09-29] MEDS: CLINDAMYCIN 600 MG in DEXTROSE 5% IN WATER 50 ML IVPB SCH ×4 (17:57→23:48)
[2022-09-29] MEDS: ACETAMINOPHEN TAB 325 MG TAB PO PRN (21:21)
[2022-09-30] MEDS: SODIUM CHLORIDE 0.9% 1,000 ML IV SCH ×2 (04:16→17:14)
[2022-09-30] MEDS: CLINDAMYCIN 600 MG in DEXTROSE 5% IN WATER 50 ML IVPB SCH ×6 (06:03→17:55)
--- NOTE | 2022-09-30 07:11 | P.PN ---
Progress Note - Text Progress Note Date: 09/30/22 Hospital day #2. Patient is resting without new complaints feeling well. Vital signs are stable she had 1 low-grade temperature to 99.5. Abdomen soft and appropriately tender. Incision is intact and dry. Culture results from yesterday are pending and CBC from today is pending as well. Plan today is to continue IV antibiotics. We'll check a CBC and results of her cultures. If she continues to well be discharge home tomorrow on oral antibiotics.
[2022-09-30 08:13] LABS: Basophils % (A) 0 %; Eosinophils # (A) 0.1 k/uL (0-0.7); Eosinophils % (A) 3 %; HCT 29.8 % (34.0-46.0); HGB 9.9 gm/dL (11.4-16.0); Hypochromasia Slight; Lymphocytes # (A) 0.9 k/uL (1.0-4.8); Lymphocytes % (A) 17 %; MCH 26.4 pg (25.0-35.0); MCHC 33.2 g/dL (31.0-37.0); MCV 79.4 fL (80.0-100.0); Mean Platelet Volume 8.4; Monocytes # (A) 0.2 k/uL (0-1.0); Monocytes % (A) 4 %; Neutrophils # (A) 3.9 k/uL (1.3-7.7); Neutrophils % (A) 73 %; Platelet Count 248 k/uL (150-450); RBC 3.75 m/uL (3.80-5.40); RDW 14.3 % (11.5-15.5); WBC 5.3 k/uL (3.8-10.6)
[2022-09-30 08:21] LABS: African American GFR (CKD) >90 (>60 ml/min/1.73 sqM); Non-African American GFR(CKD) >90 (>60 ml/min/1.73 sqM)
[2022-09-30] MEDS: LORATADINE 10 MG TAB PO SCH (10:17)
[2022-09-30] MEDS: GENTAMICIN 100 MG in SODIUM CHLORIDE 0.9% 100 ML IVPB SCH ×2 (13:51→21:11)
[2022-09-30] MEDS ORDERED: GENTAMICIN 300 MG in SODIUM CHLORIDE 0.9% 100 ML IVPB SCH (15:00)
[2022-09-30] MEDS: ACETAMINOPHEN TAB 325 MG TAB PO PRN (17:12)
[2022-10-01] MEDS: CLINDAMYCIN 600 MG in DEXTROSE 5% IN WATER 50 ML IVPB SCH ×6 (00:07→11:27)
[2022-10-01] MEDS: SODIUM CHLORIDE 0.9% 1,000 ML IV SCH (04:58)
[2022-10-01] MEDS: GENTAMICIN 100 MG in SODIUM CHLORIDE 0.9% 100 ML IVPB SCH ×2 (04:59→13:06)
[2022-10-01] MEDS: ACETAMINOPHEN TAB 325 MG TAB PO PRN (05:08)
[2022-10-01 07:23] LABS: African American GFR (CKD) >90 (>60 ml/min/1.73 sqM); Non-African American GFR(CKD) >90 (>60 ml/min/1.73 sqM)
--- NOTE | 2022-10-01 07:50 | P.PN ---
Progress Note - Text Progress Note Date: 10/01/22 Hospital day 3. Patient continues to rest without complaints. Vital signs are stable. She had a low-grade temperature to 100.1 last evening. Urine and blood cultures were negative. Serial CBC shows a normal white blood cell count. Her abdomen is soft nontender and her incision is intact and dry. Patient's milk did come in last evening. It is my impression that this patient had an early endometritis that is now resolving. I believe she is stable to discharge home after her next antibiotic dose to be on oral antibiotic and follow up with me in 5 days. She is agreeable to this plan.
--- NOTE | 2022-10-01 07:53 | P.DS ---
Providers Date of admission: 09/29/22 11:44 Expected date of discharge: 10/01/22 Attending physician: Gonzalo Evans Primary care physician: Stated None - Discharge Diagnosis(es) (1) Fever Current Visit: Yes Status: Acute (2) Status post Current Visit: Yes Status: Acute Hospital Course: Please see dictated H&P for intimate details of this patient's admission. Brief summary this is a pleasant 22-year-old 1 para 1 female who is admitted to this hospital with complaints of chills and found to have a fever. Patient's white blood cell count was normal and urine and blood cultures were negative. Patient was placed on IV clindamycin and gentamicin secondary to severe penicillin ALLERGY. Patient subsequently did well and serial CBCs were normal. Patient's felt be stable for discharge home follow up with me in 5 days. To take oral antibiotics for that time. Patient Condition at Discharge: Fair Plan - Discharge Summary New Discharge Prescriptions: New metroNIDAZOLE [Flagyl] 500 mg PO BID 7 Days #14 tab Doxycycline [Vibramycin] 100 mg PO BID 7 Days #14 cap No Action Loratadine [Claritin] 10 mg PO DAILY Fluticasone Nasal [place] [Flonase Nasal [place]] 1 spray EA NOSTRIL DAILY Ibuprofen [Motrin] 600 mg PO Q6H #40 tab oxyCODONE HCL [OxyIR] 5 mg PO Q4HR PRN #18 tab PRN Reason: Pain Scale 4 - 6 Discharge Medication List Fluticasone Nasal [place] [Flonase Nasal [place]] 1 spray EA NOSTRIL DAILY 09/25/22 [History] Loratadine [Claritin] 10 mg PO DAILY 09/25/22 [History] Ibuprofen [Motrin] 600 mg PO Q6H #40 tab 09/28/22 [Rx] oxyCODONE HCL [OxyIR] 5 mg PO Q4HR PRN #18 tab 09/28/22 [Rx] Doxycycline [Vibramycin] 100 mg PO BID 7 Days #14 cap 09/30/22 [Rx] metroNIDAZOLE [Flagyl] 500 mg PO BID 7 Days #14 tab 09/30/22 [Rx] Follow up Appointment(s)/Referral(s): None,Stated [Primary Care Provider] - 1 Week (Please see me Sunday as scheduled) Patient Instructions/Handouts: Endometritis (DC) Activity/Diet/Wound Care/Special Instructions: Please take both antibiotics as instructed. Keep appointment on Sunday as scheduled. Postoperative restrictions as previously discussed Discharge Disposition: HOME SELF-CARE
[2022-10-01] MEDS: LORATADINE 10 MG TAB PO SCH (08:20)
[2022-10-01] MEDS ORDERED: SENNOSIDES 8.6 MG TAB PO SCH (09:00)
[2022-10-01] MEDS ORDERED: SENNOSIDES-DOCUSATE SODIUM 1 EACH TAB PO SCH (09:15)
[2022-10-01 10:17] VITALS: RESP 18
[2022-10-01 13:15] VITALS: BP 108/73; PULSE 87; TEMP 99.3
== END 2022-10-01 14:30 | disposition home or self-care (01) ==
LOC: EC 08:11 → 4FBP 11:44
PROVIDERS: ADMIT Obstetrics & Gynecology; ATTEND Obstetrics & Gynecology
DX: O86.4 Pyrexia of unknown origin following delivery (principal); Z20.822 Contact with and (suspected) exposure to COVID-19; Z79.899 Other long term (current) drug therapy; Z88.0 Allergy status to penicillin; Z88.1 Allergy status to other antibiotic agents
CPT/HCPCS: 96366 ×3; 96367; 96361; 96365; 99284; 36415; 80053; 82565 ×2; 83605; 85025 ×2; 85610; 85730; 81001; 87040; 80170; 87086; 87636; 71046; 74177; G0378 ×3; J1580 ×3; Q9967